=== PATIENT | male | born 1945 | race Caucasian/White ===

== ENCOUNTER 2017-07-17 18:55 | Inpatient (IN) | payer MEDICARE, OTHER ==
[~2017-07-17] VITALS: Ht 188 cm; Wt 105.7 kg
[~2017-07-17 18:55] MED LIST: DIGO-26 PO; METO25TA6 PO
[2017-07-17] MEDS ORDERED: NA PHOS,M-B/NA PHOS,DI-BA ENEMA 118ML PR PRN (19:45)
[2017-07-17] MEDS ORDERED: MORPHINE SULFATE 2 MG/ML CPJ (NOT FOR IM USE) IV PRN (19:45)
[2017-07-17] MEDS ORDERED: MAGNESIUM/ALUMINUM HYDROXIDE/SIMETHICONE 30ML UDC PO PRN (19:45)
[2017-07-17] MEDS ORDERED: ONDANSETRON HCL 4MG/2ML VIAL IV PRN (19:45)
[2017-07-17] MEDS ORDERED: IPRATROPIUM/ALBUTEROL 0.5-3(2.5)MG/3ML NEB INH PRN (19:45)
[2017-07-17] MEDS ORDERED: GUAIFENESIN 200MG/10ML SUGAR FREE UDC PO PRN (19:45)
[2017-07-17] MEDS ORDERED: DIPHENHYDRAMINE 50MG/ML VIAL IV PRN (19:45)
[2017-07-17] MEDS ORDERED: ACETAMINOPHEN 650MG SUPP PR PRN (19:45)
[2017-07-17] MEDS ORDERED: CLONIDINE 0.1MG TABLET PO PRN (19:45)
[2017-07-17 20:00] VITALS: BP 102/57
[2017-07-17] MEDS ORDERED: MORPHINE SULFATE 4 MG/ML CPJ (NOT FOR IM USE) IV PRN (20:27)
[2017-07-17] MEDS: METOPROLOL TARTRATE 25MG TABLET PO SCH (21:00)
[2017-07-17] MEDS: HYDROCODONE/ACETAMINOPHEN 5/325MG TABLET PO PRN (22:47)
[2017-07-17] MEDS: SODIUM CHLORIDE 0.9% INJ 3ML FLUSH IVF SCH (22:50)
[2017-07-18] MEDS: DOCUSATE SODIUM 100MG CAPSULE PO PRN (06:12)
[2017-07-18] MEDS: HYDROCODONE/ACETAMINOPHEN 5/325MG TABLET PO PRN (06:12)
[2017-07-18] MEDS: SODIUM CHLORIDE 0.9% INJ 3ML FLUSH IVF SCH (06:13)
[2017-07-18 06:35] LABS: BASOPHILS % 0.7 % (0.0-2.0); EOSINOPHILS % 2.2 % (0.0-5.0); HEMATOCRIT. 36.1 % (42.0-52.0); HEMOGLOBIN. 12.2 g/dL (14.0-18.0); LYMPHOCYTES % 21.3 % (20.0-50.0); MEAN CORPUSCULAR HEMOGLOBIN 30.1 pg (28.0-32.0); MEAN CORPUSCULAR VOLUME 88.7 fL (80.0-94.0); MEAN PLATELET VOLUME 9.1 fl (7.4-10.4); MONOCYTES % 11.8 % (2.0-8.0); PLATELET 117 x1000/uL (130-400); RED BLOOD CELL COUNT 4.06 mill/uL (4.7-6.1); RED CELL DISTRIBUTION WIDTH 13.6 % (11.6-14.6)
[2017-07-18 07:58] LABS: CHLORIDE 104 mEq/L (98-107)
[2017-07-18 08:00] VITALS: BP 97/67
[2017-07-18 08:20] LABS: HDL CHOLESTEROL 42 mg/dL (40-59); LDL CHOLESTEROL 79 mg/dL (5-100)
[2017-07-18] MEDS: METOPROLOL TARTRATE 25MG TABLET PO SCH ×2 (08:52→20:14)
[2017-07-18] MEDS ORDERED: MAGNESIUM/ALUMINUM HYDROXIDE/SIMETHICONE 30ML UDC PO PRN ×2 (09:00)
[2017-07-18] MEDS ORDERED: BISACODYL 5MG TABLET PO PRN (09:00)
[2017-07-18] MEDS ORDERED: DOCUSATE SODIUM 250MG CAPSULE PO PRN (09:00)
[2017-07-18] MEDS ORDERED: MAGNESIUM HYDROXIDE 400MG/5ML 30ML UDC PO PRN (09:00)
[2017-07-18] MEDS ORDERED: HYDROCORTISONE 1% RECTAL CREAM 30GM PR PRN (12:30)
[2017-07-18] MEDS: ACETAMINOPHEN 650MG/20.3ML UDC GT PRN (13:10)
[2017-07-18] MEDS: DOCUSATE SODIUM 250MG CAPSULE PO SCH (13:15)
[2017-07-18] MEDS: RIVAROXABAN 20 MG TABLET PO SCH (17:59)
[2017-07-18] MEDS: DIGOXIN 125MCG TABLET PO SCH ×2 (18:00→18:06)
[2017-07-18 20:00] VITALS: BP 132/71
[2017-07-18] MEDS ORDERED: HYDROCORTISONE 1% CREAM 30GM TOP PRN (23:00)
[2017-07-19 08:00] VITALS: BP 114/78
[2017-07-19] MEDS: ACETAMINOPHEN 650MG/20.3ML UDC GT PRN ×4 (08:18→21:42)
[2017-07-19] MEDS: METOPROLOL TARTRATE 25MG TABLET PO SCH ×2 (08:19→21:00)
[2017-07-19] MEDS: DOCUSATE SODIUM 250MG CAPSULE PO SCH (08:19)
[2017-07-19] MEDS: RIVAROXABAN 20 MG TABLET PO SCH (17:59)
[2017-07-19] MEDS ORDERED: MAGNESIUM CITRATE 300ML SOLUTION PO NR (18:00)
[2017-07-19] MEDS: DIGOXIN 125MCG TABLET PO SCH (18:00)
[2017-07-19 20:00] VITALS: BP 110/70
[2017-07-20] MEDS: DOCUSATE SODIUM 250MG CAPSULE PO SCH (08:09)
[2017-07-20] MEDS: ACETAMINOPHEN 650MG/20.3ML UDC GT PRN ×2 (08:09→14:17)
[2017-07-20] MEDS: METOPROLOL TARTRATE 25MG TABLET PO SCH ×2 (08:10→21:00)
[2017-07-20 08:33] VITALS: BP 110/74
[2017-07-20] MEDS: DIGOXIN 125MCG TABLET PO SCH (16:48)
[2017-07-20] MEDS: RIVAROXABAN 20 MG TABLET PO SCH (17:01)
[2017-07-20 20:00] VITALS: BP 113/75
[2017-07-21] MEDS: METOPROLOL TARTRATE 25MG TABLET PO SCH ×2 (08:33→21:00)
[2017-07-21 08:38] VITALS: BP 100/63
[2017-07-21] MEDS: DOCUSATE SODIUM 250MG CAPSULE PO SCH (08:39)
[2017-07-21] MEDS: RIVAROXABAN 20 MG TABLET PO SCH (17:18)
[2017-07-21] MEDS: DIGOXIN 125MCG TABLET PO SCH (17:52)
[2017-07-21 20:00] VITALS: BP 113/64
[2017-07-22 08:00] VITALS: BP 96/76
[2017-07-22] MEDS: ACETAMINOPHEN 650MG/20.3ML UDC GT PRN (08:06)
[2017-07-22] MEDS: DOCUSATE SODIUM 250MG CAPSULE PO SCH (08:06)
[2017-07-22] MEDS: METOPROLOL TARTRATE 25MG TABLET PO SCH ×2 (08:09→21:00)
[2017-07-22 09:36] LABS: BASOPHILS % 1.3 % (0.0-2.0); EOSINOPHILS % 2.1 % (0.0-5.0); HEMOGLOBIN. 13.1 g/dL (14.0-18.0); LYMPHOCYTES % 18.8 % (20.0-50.0); MEAN CORPUSCULAR HEMOGLOBIN 30.8 pg (28.0-32.0); MEAN CORPUSCULAR VOLUME 89.1 fL (80.0-94.0); MEAN PLATELET VOLUME 8.3 fl (7.4-10.4); MONOCYTES % 12.7 % (2.0-8.0); NEUTROPHILS % 65.1 % (40.0-76.0); PLATELET 293 x1000/uL (130-400); RED BLOOD CELL COUNT 4.27 mill/uL (4.7-6.1); RED CELL DISTRIBUTION WIDTH 13.7 % (11.6-14.6)
[2017-07-22] MEDS ORDERED: MORPHINE SULFATE 4 MG/ML CPJ (NOT FOR IM USE) IV PRN (12:27)
[2017-07-22] MEDS: HYDROCODONE/ACETAMINOPHEN 5/325MG TABLET PO PRN ×2 (13:34→21:28)
[2017-07-22] MEDS: RIVAROXABAN 20 MG TABLET PO SCH (16:47)
[2017-07-22] MEDS: LACTULOSE 20G/30ML UDC PO PRN (16:47)
[2017-07-22] MEDS: DIGOXIN 125MCG TABLET PO SCH (17:25)
[2017-07-22 20:00] VITALS: BP 107/66
[2017-07-22 23:20] LABS: CLARITY URINE CLEAR (CLEAR); COLOR URINE DARK YELLOW (YELLOW); KETONES URINE TRACE (NEGATIVE); LEUKOCYTE ESTERASE URINE NEGATIVE (NEGATIVE); NITRITE URINE NEGATIVE (NEGATIVE); OCCULT BLOOD URINE NEGATIVE (NEGATIVE); PROTEIN URINE NEGATIVE (NEGATIVE); SPECIFIC GRAVITY URINE 1.035 (1.005-1.030)
[2017-07-23] MEDS ORDERED: NORMAL SALINE 0.9% 10 ML SYR ONE (07:00)
[2017-07-23] MEDS ORDERED: BACITRACIN 50,000 UNITS/VIAL ONE (07:00)
[2017-07-23 08:00] VITALS: BP 101/68
[2017-07-23] MEDS: DOCUSATE SODIUM 250MG CAPSULE PO SCH (08:24)
[2017-07-23] MEDS: HYDROCODONE/ACETAMINOPHEN 5/325MG TABLET PO PRN ×3 (08:24→22:42)
[2017-07-23] MEDS: METOPROLOL TARTRATE 25MG TABLET PO SCH ×2 (08:25→21:00)
[2017-07-23] MEDS: DIGOXIN 125MCG TABLET PO SCH (17:41)
[2017-07-23] MEDS: RIVAROXABAN 20 MG TABLET PO SCH (17:43)
[2017-07-23 20:00] VITALS: BP 106/74
[2017-07-24 08:00] VITALS: BP 99/67
[2017-07-24] MEDS: DOCUSATE SODIUM 100MG CAPSULE PO PRN (08:44)
[2017-07-24] MEDS: HYDROCODONE/ACETAMINOPHEN 5/325MG TABLET PO PRN ×3 (08:48→21:33)
[2017-07-24] MEDS: METOPROLOL TARTRATE 25MG TABLET PO SCH ×2 (09:00→21:00)
[2017-07-24] MEDS: DOCUSATE SODIUM 250MG CAPSULE PO SCH (09:00)
[2017-07-24] MEDS: DIGOXIN 125MCG TABLET PO SCH (18:00)
[2017-07-24] MEDS: RIVAROXABAN 20 MG TABLET PO SCH (18:26)
[2017-07-24] MEDS: LACTULOSE 20G/30ML UDC PO PRN (19:48)
[2017-07-24 20:00] VITALS: BP 100/67
[2017-07-25] MEDS: BISACODYL 10MG SUPP PR PRN (05:58)
[2017-07-25] MEDS: METOPROLOL TARTRATE 25MG TABLET PO SCH ×2 (08:31→20:00)
[2017-07-25 08:32] VITALS: BP 103/65
[2017-07-25] MEDS: DOCUSATE SODIUM 250MG CAPSULE PO SCH (08:32)
[2017-07-25] MEDS: HYDROCODONE/ACETAMINOPHEN 5/325MG TABLET PO PRN ×2 (08:33→14:26)
[2017-07-25] MEDS: RIVAROXABAN 20 MG TABLET PO SCH (17:39)
[2017-07-25] MEDS: DIGOXIN 125MCG TABLET PO SCH (17:40)
[2017-07-25 20:00] VITALS: BP 98/60
[2017-07-26 07:00] VITALS: BP 104/70
[2017-07-26] MEDS: HYDROCODONE/ACETAMINOPHEN 5/325MG TABLET PO PRN ×2 (07:31→13:55)
[2017-07-26] MEDS: METOPROLOL TARTRATE 25MG TABLET PO SCH ×2 (08:19→20:32)
[2017-07-26] MEDS: DOCUSATE SODIUM 250MG CAPSULE PO SCH (08:19)
[2017-07-26 13:40] VITALS: BP 96/63
[2017-07-26] MEDS: DIGOXIN 125MCG TABLET PO SCH (17:27)
[2017-07-26 20:00] VITALS: BP 99/59
[2017-07-26] MEDS: LACTULOSE 20G/30ML UDC PO PRN (20:31)
[2017-07-27 07:35] VITALS: BP 99/72
[2017-07-27] MEDS: DOCUSATE SODIUM 250MG CAPSULE PO SCH (08:44)
[2017-07-27] MEDS: METOPROLOL TARTRATE 25MG TABLET PO SCH ×2 (08:47→20:23)
[2017-07-27] MEDS: BISACODYL 10MG SUPP PR PRN (09:37)
[2017-07-27] MEDS: DIGOXIN 125MCG TABLET PO SCH (17:37)
[2017-07-27 20:00] VITALS: BP 97/63
[2017-07-27] MEDS: DOCUSATE SODIUM 100MG CAPSULE PO PRN (20:24)
[2017-07-28 08:00] VITALS: BP 108/72
[2017-07-28] MEDS: METOPROLOL TARTRATE 25MG TABLET PO SCH ×2 (09:00→21:00)
[2017-07-28] MEDS: DOCUSATE SODIUM 250MG CAPSULE PO SCH (09:40)
[2017-07-28] MEDS: DIGOXIN 125MCG TABLET PO SCH (18:00)
[2017-07-28] MEDS: ASPIRIN 81MG EC TABLET PO SCH (18:00)
[2017-07-28 20:00] VITALS: BP 93/60
[2017-07-29] MEDS: DOCUSATE SODIUM 250MG CAPSULE PO SCH (08:15)
[2017-07-29] MEDS: METOPROLOL TARTRATE 25MG TABLET PO SCH ×2 (08:16→21:00)
[2017-07-29] MEDS: ASPIRIN 81MG EC TABLET PO SCH (08:16)
[2017-07-29 08:19] VITALS: BP 97/71
[2017-07-29 09:10] VITALS: BP 108/64
[2017-07-29] MEDS: DIGOXIN 125MCG TABLET PO SCH (17:22)
[2017-07-29 20:00] VITALS: BP 109/78
[2017-07-29] MEDS: BISACODYL 10MG SUPP PR PRN (21:08)
[2017-07-30 08:00] VITALS: BP 103/67
[2017-07-30] MEDS: DOCUSATE SODIUM 100MG CAPSULE PO PRN (08:22)
[2017-07-30] MEDS: ASPIRIN 81MG EC TABLET PO SCH (08:22)
[2017-07-30] MEDS: DOCUSATE SODIUM 250MG CAPSULE PO SCH (08:24)
[2017-07-30] MEDS: METOPROLOL TARTRATE 25MG TABLET PO SCH (08:25)
[2017-07-30 13:49] VITALS: BP 101/61
== END 2017-07-30 14:05 | disposition home or self-care (01) | DRG 536 ==
LOC: UNDOADMIN 19:20
PROVIDERS: ADMIT Psychiatry & Neurology Neurology; ATTEND Family Medicine
DX: S72.142A Displaced intertrochanteric fracture of left femur, initial encounter for closed fracture (principal); I48.2 Chronic atrial fibrillation; E78.5 Hyperlipidemia, unspecified; M79.609 Pain in unspecified limb; R26.9 Unspecified abnormalities of gait and mobility; W19.XXXA Unspecified fall, initial encounter; Y93.89 Activity, other specified; Y92.89 Other specified places as the place of occurrence of the external cause; Y99.8 Other external cause status; F06.31 Mood disorder due to known physiological condition with depressive features; R58 Hemorrhage, not elsewhere classified; Z79.82 Long term (current) use of aspirin
CPT/HCPCS: 36415; 80053; 80061; 81003; 85025; 87086; 93970; 97110; 97116; 97162; 97166; 97530; 97535; A4216; J3490